=== PATIENT | male | born 1945 | race Caucasian/White ===

== ENCOUNTER 2025-02-03 21:54 | Inpatient (IN) | payer MEDICARE, OTHER, SELFPAY ==
[2025-02-03] VITALS (37 sets, daily range): BP systolic 62–119; BP diastolic 37–73; BMI 32.1
[2025-02-03] MEDS: NSS 1000 IV ×3 (20:15→21:26)
[2025-02-03 20:31] LABS: % Basophils 0.6 % (0-2); % Eosinophils 1.4 % (0-6); % Immature Granulocytes 0.2 % (0-0.5); % Lymphocytes 22.5 % (20.5-51.1); % Monocytes 6.4 % (1.7-9.3); % Neutrophils 68.9 % (42.2-75.2); Absolute Basophils 0.1 10^3/uL (0-0.2); Absolute Eosinophils 0.2 10^3/uL (0-0.7); Absolute Lymphocytes 2.8 10^3/uL (1.2-3.4); Absolute Monocytes 0.8 10^3/uL (0.1-0.6); Absolute Neutrophils 8.7 10^3/uL (1.4-6.5); Hematocrit 42.5 % (39.0-52.0); Hemoglobin 14.4 g/dL (13.0-18.0); Mean Corp Hgb Conc. 33.9 g/dL (33.0-37.0); Mean Corpuscular Volume 91.4 fL (80.0-94.0); Mean Platelet Volume 9.8 fL (7.4-10.4); Nucleated Red Blood Cells % 0 % (-); Platelet Count 271 10^3/uL (130-400); Red Blood Cell Count 4.65 10^6/uL (4.70-6.10); Red Cell Dist. Width 14.1 % (11.5-14.5); White Blood Cell Count 12.6 10^3/uL (4.8-10.8)
--- NOTE | 2025-02-03 20:45 | ED.GENMED ---
History of Present Illness
<Jm Du MD - Last Filed: 02/03/25 20:54>
General
Chief Complaint: Heart Rate Problem
Time Seen by Provider: 02/03/25 20:25
<Spenser Maddox Jr., PA-C - Last Filed: 02/04/25 00:35>
General
Source: patient
Exam Limitations: none
Nursing documentation reviewed up to this point in time: agreed with
History of Present Illness
History of Present Illness:
80-year-old male past medical history of hypertension hyperlipidemia, diabetes presenting to the emergency department today via EMS initially with concerns of nausea vomiting felt very lightheaded syncopized at home was found to be in rapid A-fib by
EMS and brought to the ER. Still feeling some ongoing lightheadedness denies any chest pain palpitations no history of recent chest pain palpitations or similar symptoms. Still has some ongoing nausea.
Past History
<Jm Du MD - Last Filed: 02/03/25 20:54>
Past History
ED Past Medical History: HTN, Hypercholesterolemia, NIDDM and Other (prostate)
ED Past Surgical History: None
Patient has exhibited threatening behavior?: No
PSI?: No
Review of Systems
<Spenser Maddox Jr., PA-C - Last Filed: 02/04/25 00:35>
Review of Systems
Allergies reviewed?: Yes
All Other Systems: ROS reviewed and negative except as documented in HPI and ROS
Phy Exam
<Spenser Maddox Jr., PA-C - Last Filed: 02/04/25 00:35>
Physical Exam
Physical Exam:
GENERAL: Alert , in no apparent distress
EYE: pupils equal and reactive
NECK: Supple, no significant adenopathy.
ENT: o/p clr, mmm.
CARDIAC: Tachycardic and irregularly irregular.
LUNGS: Clear breath sounds bilaterally, no acute respiratory distress, no wheezes/rales/rhonchi
ABDOMEN: Soft, without focal tenderness, no r/g, no cvat
NEUROLOGICAL: Alert and oriented, no focal neuro deficits
SKIN: Warm and dry, skin intact.
MUSCULOSKELETAL: No edema, well perfused.
PSYCH: Normal and appropriate interaction.
Course
<Jm Du MD - Last Filed: 02/03/25 20:54>
Orders/Labs/Results
Orders:
Orders
02/03/25 Breakfast
NPO
Allow oral meds: Yes
Allow clear liquids: Sips of Clears
02/03/25 20:18
Electrocardiogram (*1) Urgent
Reason for Study: Tachycardia
EKG- Treatment ONCE
02/03/25 20:25
Chest X-ray Portable [CR Chest Portable - 1 View] Urgent
Comment:
Reason For Exam: lh, sob
Reason Study Needs to be Portable: Patient Unstable
02/03/25 20:26
Complete Blood Count/With Diff Urgent
Comprehensive Metabolic Panel Urgent
0.9% Sodium Chloride 1000 ml [Nss] 1,000 ml IV BOLUS
02/03/25 20:30
Propofol [Diprivan] 20 ml .ROUTE .STK-MED
02/03/25 20:40
0.9% Sodium Chloride 1000 ml [Nss] 1,000 ml IV BOLUS
02/03/25 20:43
CARDIOLOGY CONSULT Urgent
Consulting Provider: Jayro Donovan
Was physician already notified: Yes
Heparin 4,000 units IV NOW STA
Nursing to Place Non Medication Order As Directed
Physician Order: PTT 6 hours after initial start of Heparin infusion
Above order entered?: Yes
02/03/25 20:45
Heparin 91635 Units/250 ml 25,000 units in 250 ml IV PER PROTOCOL
Weight to be used for heparin protocol in kilograms (kg):: 109
Protocol:: Cardiac Tx/Acute Coronary
PTT Goal Range to be used:: PTT 73 to 111 seconds
Order type:: Initial
INITIAL Infusion Dose (UNITS/KG/hr) & then follow protocol:: 12 units/kg/hr
Infusion Dose in UNITS/hr & then follow protocol (UNITS/hr):: 1,000
INFUSION RATE in mL/hr & then follow protocol (mL/hr):: 10
PTT less than or equal to 64 seconds:: Increase rate by 200 units/hr (+ 2 mL/hr)
PTT 64.1 to 72.9 seconds:: Increase rate by 100 units/hr (+ 1 mL/hr)
PTT 73 to 111 seconds:: Target Range. No change in rate.
PTT 111.1 to 130.9 seconds:: Decrease rate by 100 units/hr (- 1 mL/hr)
PTT 131 to 199.9 seconds:: HOLD for 1 hr. Then decrease rate by 200 units/hr (- 2 mL/hr)
PTT greater than or equal to 200 seconds:: HOLD for 2 hrs & Notify Provider. Then decrease by 200 units/hr (-
2 mL/hr)
Lab follow-up:: Each change, PTT q6h until 2 consecutive are therapeutic. Then PTT
daily.
02/03/25 21:01
Amiodarone [Cordarone] 150 mg Dextrose 5%/Water 100 ml [D5w] 100 ml IV NOW
Amiodarone [Cordarone] 900 mg DEXTROSE 5% PVC-free BAG [D5W PVC-free BAG] 500 ml IV NOW
Initial Dose in mg/min:: 1
Duration of initial dose (hours):: 6
Subsequent dose in mg/min:: 0.5
Duration of subsequent dose (hours):: 18
Maximum dose in mg/min:: 1
Hold and notify provider if:: Heart rate < 60 BPM or SBP < 90 mmHg or MAP < 60 mmHg
02/03/25 21:19
0.9% Sodium Chloride 1000 ml [Nss] 1,000 ml IV BOLUS
02/03/25 21:22
PTT Urgent
Comment: Obtain baseline before beginning heparin infusion if not already collected
02/03/25 21:24
Admit/Transfer Patient As Directed
Co-Sign Provider:
Level of Care: Inpatient admission
Assign to:: ICU
Physician / Group: Andre
Diagnosis: Atrial Fibrillation, Cardiogenic Shock
Reason for Hospitalization: Atrial Fibrillation, Cardiogenic Shock
Expected length of stay greater than two midnights?: Yes
ELOS- Estimated Length of Stay in days: 3
I certify the patient meets the requirements for IP care: Yes
PRN Pain Medication Management As Directed
May give lesser potent ordered pain med per pt: Yes
preference::
Protocol:: Medication orders for pain may be administered in a
manner that supports deferring to patient preference
when the pt is:
- Requesting an ordered lesser potent pain medication.
Least to most potent pain medications are defined
as: acetaminophen < NSAID < tramadol < opioids
(morphine, oxycodone, hydromorphone).
- Requesting a lesser dose of the same medication IF
ORDERED.
- Requesting a less intrusive route of administration
if both routes are prescribed by the provider (PO <
IV).
02/03/25 21:25
Code Status As Directed
Resuscitation Status: Full Code
02/03/25 21:30
PHENYLephrine 50 MG/250 ML NSS [Krishna-Synephrine] 50 mg in 250 ml IV PER PROTOCOL
Initial dose in mcg/min, then titrate:: 40
Titrate to keep:: SBP > 90 mmHg
Titrate by mcg/min:: 20 mcg/min
Frequency of titrations (minutes):: 5
Maximum dose in ICU in mcg/min:: 200
Maximum dose in IMU in mcg/min:: 80
Begin to taper infusion when:: Remained at goal for 4hrs
Taper by mcg/min:: 20 mcg/min
Frequency of taper (minutes) if patient maintains goal:: 30
Taper to off?: Yes
If infusion off & no longer maintaining goal:: Contact Provider
02/03/25 21:49
Add On- LAB Stat
Tests Added?: magnesium
02/03/25 22:06
Acetaminophen [Tylenol] 650 mg PO Q4HPRN PRN
Dextrose 50%-Water [Dextrose 50% Syringe] 12.5 grams IV [id number] PRN
Glucagon [GlucaGen] 1 mg IM PRN PRN
02/03/25 22:06
Echo 2D MMode Doppler [Echo 2D MMode Color/Doppler] Routine
Reason for Study: A-Fib
Heparin Protocol- PTT Orders As Directed
PTT per Heparin protocol: -Obtain CBC and baseline PTT - if not already collected.
-Obtain PTT 6 hours from start of infusion. Then, every 6 hours until 2 consecutive
PTT's are therapeutic. Then, PTT Daily.
-With each rate change, obtain PTT every 6 hours until 2 consecutive PTT's are
therapeutic. Then, PTT Daily.
Activity As Directed
Activity Level: Bedrest
Bedside Glucose Monitoring As Directed
Frequency: AC&HS
Additional Instructions:: Change to q6h if pt on TPN, tube feeding or not eating
Bladder Scan As Directed
Follow Bladder Retention/Intermittent Cath Algorithm?: Yes
PRN if no void in __ hours: 6
Frequency: Per Retention Algorithm
If Bladder Scan Result >: 400
then:: Straight cath
EKG with chest pain [ECG as needed] As Directed
ECG as needed for:: Chest Pain
I/O [Intake/ Output] As Directed
Frequency: Per unit guidelines
Notify MD As Directed
Notify physician if: PTT is greater than or equal to 200.
Straight Cath As Directed
Frequency: Per Retention Algorithm
Additional Instructions: straight cath as needed per acute urinary retention algorithm for 24 hrs
Additional Instructions: for bladder scan greater than 400 mL
Vital Signs As Directed
Frequency: Per unit guidelines
Weight As Directed
Frequency: Daily
Oxygen Therapy [O2 Therapy] [RESP] Routine
Titrate/Wean O2 to maintain O2 sat greater than (%): 94
02/03/25 23:34
Troponin I Q6H
02/04/25 03:20
Protime/PTT Routine
02/04/25 04:06
Troponin I Q6H
02/04/25 06:00
EKG [Electrocardiogram (*1)] IN AM
Reason for Study: Chest Pain
Basic Metabolic Panel IN AM
Cardiovascular Evaluation IN AM
Glycohemoglobin (HgbA1c) IN AM
Magnesium IN AM
02/04/25 07:30
Insulin Aspart Corrective Low [Novolog Flexpen-Low Resistance] See Protocol SC AC
02/04/25 10:06
Troponin I Q6H
02/05/25 06:00
Complete Blood Count/No Diff Q2D
Comment: notify provider: Platelet count < 130,000 or decrease by 50% from baseline
02/07/25 06:00
Complete Blood Count/No Diff Q2D
Comment: notify provider: Platelet count < 130,000 or decrease by 50% from baseline
02/09/25 06:00
Complete Blood Count/No Diff Q2D
Comment: notify provider: Platelet count < 130,000 or decrease by 50% from baseline
02/11/25 06:00
Complete Blood Count/No Diff Q2D
Comment: notify provider: Platelet count < 130,000 or decrease by 50% from baseline
02/13/25 06:00
Complete Blood Count/No Diff Q2D
Comment: notify provider: Platelet count < 130,000 or decrease by 50% from baseline
02/15/25 06:00
Complete Blood Count/No Diff Q2D
Comment: notify provider: Platelet count < 130,000 or decrease by 50% from baseline
02/17/25 06:00
Complete Blood Count/No Diff Q2D
Comment: notify provider: Platelet count < 130,000 or decrease by 50% from baseline
02/19/25 06:00
Complete Blood Count/No Diff Q2D
Comment: notify provider: Platelet count < 130,000 or decrease by 50% from baseline
Abnormal Lab Results
02/03/25
20:26
WBC 12.6 H 10^3/uL
(4.8-10.8)
RBC 4.65 L 10^6/uL
(4.70-6.10)
Absolute Neuts (auto) 8.7 H 10^3/uL
(1.4-6.5)
Absolute Monos (auto) 0.8 H 10^3/uL
(0.1-0.6)
Glucose 172 H mg/dl
(70-99)
02/03/25 20:26
02/03/25 20:26
Vital Signs
Initial and Last Documented VS:
Initial Vital Signs
BP
62/45
02/03/25 20:16
Last Documented Vital Signs
Temp Pulse Resp BP Pulse Ox
98.7 F 144 24 119/70 95
02/03/25 22:22 02/03/25 22:15 02/03/25 22:15 02/03/25 22:15 02/03/25 22:28
<Spenser Maddox Jr., PA-C - Last Filed: 02/04/25 00:35>
Orders/Labs/Results
Orders:
Orders
02/03/25 Breakfast
NPO
Allow oral meds: Yes
Allow clear liquids: Sips of Clears
02/03/25 20:18
Electrocardiogram (*1) Urgent
Reason for Study: Tachycardia
EKG- Treatment ONCE
02/03/25 20:25
Chest X-ray Portable [CR Chest Portable - 1 View] Urgent
Comment:
Reason For Exam: lh, sob
Reason Study Needs to be Portable: Patient Unstable
02/03/25 20:26
Complete Blood Count/With Diff Urgent
Comprehensive Metabolic Panel Urgent
0.9% Sodium Chloride 1000 ml [Nss] 1,000 ml IV BOLUS
02/03/25 20:30
Propofol [Diprivan] 20 ml .ROUTE .STK-MED
02/03/25 20:40
0.9% Sodium Chloride 1000 ml [Nss] 1,000 ml IV BOLUS
02/03/25 20:43
CARDIOLOGY CONSULT Urgent
Consulting Provider: Jayro Donovan
Was physician already notified: Yes
Heparin 4,000 units IV NOW STA
Nursing to Place Non Medication Order As Directed
Physician Order: PTT 6 hours after initial start of Heparin infusion
Above order entered?: Yes
02/03/25 20:45
Heparin 78060 Units/250 ml 25,000 units in 250 ml IV PER PROTOCOL
Weight to be used for heparin protocol in kilograms (kg):: 109
Protocol:: Cardiac Tx/Acute Coronary
PTT Goal Range to be used:: PTT 73 to 111 seconds
Order type:: Initial
INITIAL Infusion Dose (UNITS/KG/hr) & then follow protocol:: 12 units/kg/hr
Infusion Dose in UNITS/hr & then follow protocol (UNITS/hr):: 1,000
INFUSION RATE in mL/hr & then follow protocol (mL/hr):: 10
PTT less than or equal to 64 seconds:: Increase rate by 200 units/hr (+ 2 mL/hr)
PTT 64.1 to 72.9 seconds:: Increase rate by 100 units/hr (+ 1 mL/hr)
PTT 73 to 111 seconds:: Target Range. No change in rate.
PTT 111.1 to 130.9 seconds:: Decrease rate by 100 units/hr (- 1 mL/hr)
PTT 131 to 199.9 seconds:: HOLD for 1 hr. Then decrease rate by 200 units/hr (- 2 mL/hr)
PTT greater than or equal to 200 seconds:: HOLD for 2 hrs & Notify Provider. Then decrease by 200 units/hr (-
2 mL/hr)
Lab follow-up:: Each change, PTT q6h until 2 consecutive are therapeutic. Then PTT
daily.
02/03/25 21:01
Amiodarone [Cordarone] 150 mg Dextrose 5%/Water 100 ml [D5w] 100 ml IV NOW
Amiodarone [Cordarone] 900 mg DEXTROSE 5% PVC-free BAG [D5W PVC-free BAG] 500 ml IV NOW
Initial Dose in mg/min:: 1
Duration of initial dose (hours):: 6
Subsequent dose in mg/min:: 0.5
Duration of subsequent dose (hours):: 18
Maximum dose in mg/min:: 1
Hold and notify provider if:: Heart rate < 60 BPM or SBP < 90 mmHg or MAP < 60 mmHg
02/03/25 21:19
0.9% Sodium Chloride 1000 ml [Nss] 1,000 ml IV BOLUS
02/03/25 21:22
PTT Urgent
Comment: Obtain baseline before beginning heparin infusion if not already collected
02/03/25 21:24
Admit/Transfer Patient As Directed
Co-Sign Provider:
Level of Care: Inpatient admission
Assign to:: ICU
Physician / Group: Andre
Diagnosis: Atrial Fibrillation, Cardiogenic Shock
Reason for Hospitalization: Atrial Fibrillation, Cardiogenic Shock
Expected length of stay greater than two midnights?: Yes
ELOS- Estimated Length of Stay in days: 3
I certify the patient meets the requirements for IP care: Yes
PRN Pain Medication Management As Directed
May give lesser potent ordered pain med per pt: Yes
preference::
Protocol:: Medication orders for pain may be administered in a
manner that supports deferring to patient preference
when the pt is:
- Requesting an ordered lesser potent pain medication.
Least to most potent pain medications are defined
as: acetaminophen < NSAID < tramadol < opioids
(morphine, oxycodone, hydromorphone).
- Requesting a lesser dose of the same medication IF
ORDERED.
- Requesting a less intrusive route of administration
if both routes are prescribed by the provider (PO <
IV).
02/03/25 21:25
Code Status As Directed
Resuscitation Status: Full Code
02/03/25 21:30
PHENYLephrine 50 MG/250 ML NSS [Krishna-Synephrine] 50 mg in 250 ml IV PER PROTOCOL
Initial dose in mcg/min, then titrate:: 40
Titrate to keep:: SBP > 90 mmHg
Titrate by mcg/min:: 20 mcg/min
Frequency of titrations (minutes):: 5
Maximum dose in ICU in mcg/min:: 200
Maximum dose in IMU in mcg/min:: 80
Begin to taper infusion when:: Remained at goal for 4hrs
Taper by mcg/min:: 20 mcg/min
Frequency of taper (minutes) if patient maintains goal:: 30
Taper to off?: Yes
If infusion off & no longer maintaining goal:: Contact Provider
02/03/25 21:49
Add On- LAB Stat
Tests Added?: magnesium
02/03/25 22:06
Acetaminophen [Tylenol] 650 mg PO Q4HPRN PRN
Dextrose 50%-Water [Dextrose 50% Syringe] 12.5 grams IV [id number] PRN
Glucagon [GlucaGen] 1 mg IM PRN PRN
02/03/25 22:06
Echo 2D MMode Doppler [Echo 2D MMode Color/Doppler] Routine
Reason for Study: A-Fib
Heparin Protocol- PTT Orders As Directed
PTT per Heparin protocol: -Obtain CBC and baseline PTT - if not already collected.
-Obtain PTT 6 hours from start of infusion. Then, every 6 hours until 2 consecutive
PTT's are therapeutic. Then, PTT Daily.
-With each rate change, obtain PTT every 6 hours until 2 consecutive PTT's are
therapeutic. Then, PTT Daily.
Activity As Directed
Activity Level: Bedrest
Bedside Glucose Monitoring As Directed
Frequency: AC&HS
Additional Instructions:: Change to q6h if pt on TPN, tube feeding or not eating
Bladder Scan As Directed
Follow Bladder Retention/Intermittent Cath Algorithm?: Yes
PRN if no void in __ hours: 6
Frequency: Per Retention Algorithm
If Bladder Scan Result >: 400
then:: Straight cath
EKG with chest pain [ECG as needed] As Directed
ECG as needed for:: Chest Pain
I/O [Intake/ Output] As Directed
Frequency: Per unit guidelines
Notify MD As Directed
Notify physician if: PTT is greater than or equal to 200.
Straight Cath As Directed
Frequency: Per Retention Algorithm
Additional Instructions: straight cath as needed per acute urinary retention algorithm for 24 hrs
Additional Instructions: for bladder scan greater than 400 mL
Vital Signs As Directed
Frequency: Per unit guidelines
Weight As Directed
Frequency: Daily
Oxygen Therapy [O2 Therapy] [RESP] Routine
Titrate/Wean O2 to maintain O2 sat greater than (%): 94
02/03/25 23:34
Troponin I Q6H
02/04/25 03:20
Protime/PTT Routine
02/04/25 04:06
Troponin I Q6H
02/04/25 06:00
EKG [Electrocardiogram (*1)] IN AM
Reason for Study: Chest Pain
Basic Metabolic Panel IN AM
Cardiovascular Evaluation IN AM
Glycohemoglobin (HgbA1c) IN AM
Magnesium IN AM
02/04/25 07:30
Insulin Aspart Corrective Low [Novolog Flexpen-Low Resistance] See Protocol SC AC
02/04/25 10:06
Troponin I Q6H
02/05/25 06:00
Complete Blood Count/No Diff Q2D
Comment: notify provider: Platelet count < 130,000 or decrease by 50% from baseline
02/07/25 06:00
Complete Blood Count/No Diff Q2D
Comment: notify provider: Platelet count < 130,000 or decrease by 50% from baseline
02/09/25 06:00
Complete Blood Count/No Diff Q2D
Comment: notify provider: Platelet count < 130,000 or decrease by 50% from baseline
02/11/25 06:00
Complete Blood Count/No Diff Q2D
Comment: notify provider: Platelet count < 130,000 or decrease by 50% from baseline
02/13/25 06:00
Complete Blood Count/No Diff Q2D
Comment: notify provider: Platelet count < 130,000 or decrease by 50% from baseline
02/15/25 06:00
Complete Blood Count/No Diff Q2D
Comment: notify provider: Platelet count < 130,000 or decrease by 50% from baseline
02/17/25 06:00
Complete Blood Count/No Diff Q2D
Comment: notify provider: Platelet count < 130,000 or decrease by 50% from baseline
02/19/25 06:00
Complete Blood Count/No Diff Q2D
Comment: notify provider: Platelet count < 130,000 or decrease by 50% from baseline
Abnormal Lab Results
02/03/25
20:26
WBC 12.6 H 10^3/uL
(4.8-10.8)
RBC 4.65 L 10^6/uL
(4.70-6.10)
Absolute Neuts (auto) 8.7 H 10^3/uL
(1.4-6.5)
Absolute Monos (auto) 0.8 H 10^3/uL
(0.1-0.6)
Glucose 172 H mg/dl
(70-99)
02/03/25 20:26
02/03/25 20:26
Vital Signs
Initial and Last Documented VS:
Initial Vital Signs
BP
62/45
02/03/25 20:16
Last Documented Vital Signs
Temp Pulse Resp BP Pulse Ox
98.7 F 144 24 119/70 95
02/03/25 22:22 02/03/25 22:15 02/03/25 22:15 02/03/25 22:15 02/03/25 22:28
Procedures
<Jm Du MD - Last Filed: 02/03/25 20:54>
Moderate Sedation
Moderate Sedation Start Time(when first medication is given): 20:34
Cardioversion
Indication:: Afib
Performed by:: Jm Du MD; Spenser Maddox PA-C
Synchronized?: Yes
Energy Used: 200 joules
Number of attempts: 3 (200J,300J,360J)
Successful?: No
ASA Risk Score: Class II
Any reaction or bad outcome to prior sedation/anesthesia?: No history of a reaction
Sedation level to be attained: moderate
Chart and allergies reviewed: Yes
Patient reassessed prior to sedation: Yes
Time out completed at (validating right patient & procedure): 20:34
History of difficult intubation: No
Airway free of obstruction: Yes
Patient has a gag reflex: Yes
Patient is able to open mouth: Yes
Patient has no dentures: Yes
Patient has no loose teeth: Yes
Medication administered by Provider during Moderate Sedation: IV Propofol (mg)
Total dose administered: 80
Time drug administered: 20:34
Start Time: 20:34
Stop Time: 20:54
<WILLY Ohara Jr.C - Last Filed: 02/04/25 00:35>
Moderate Sedation
ASA Risk Score: Class II
Chart and allergies reviewed: Yes
Consent for anesthesia obtained: Yes
Time out completed (validating right patient & procedure): Yes
History of difficult intubation: No
Airway free of obstruction: Yes
Patient has a gag reflex: Yes
Patient is able to open mouth: Yes
Patient has no dentures: Yes
Patient has no loose teeth: Yes
Medication administered by Provider during Moderate Sedation: IV Propofol (mg) (80)
Total dose administered: 80
Time drug administered: 20:34
Moderate Sedation Procedure End Time: 20:52
<Spenser Maddox Jr., PA-C - Last Filed: 02/04/25 00:35>
MDM/Problems Addressed
MDM/Problems Addressed:
80-year-old male presenting to the emergency department today with concerns after vomiting at home having a syncopal episode. Found to be in rapid A-fib. On arrival blood pressure low in the 60s over 40s. He was started on a pressure bag
immediately of IV fluids. This seemed to be trending upward but still somewhat low. He was feeling ongoing lightheadedness considering the patient needed to be emergently cardioverted. Shock was attempted at 200 300 and then 360 J without
success. Patient tolerated well require propofol. Patient recovered well after the propofol. Still in rapid A-fib blood pressure improving after ongoing second liter of fluid into the 80s over 40s. Patient was interactive and able to speak
breathe on his own after a few minutes. He did have a brief episode where he needed to be bagged. Concerning the patient unable to be cardioverted out of rapid atrial fibrillation with low blood pressure unable to give Cardizem. Case was
discussed with cardiology recommending amiodarone heparin dosing phenylephrine if blood pressures on creasing. Patient then admitted for further monitoring and treatment.
<Spenser Maddox Jr., PA-C - Last Filed: 02/04/25 00:35>
*Critical Care Note
Total Time (30-74mins, 75-104mins- exclusive of procedures): Not Applicable
comment:
Critical care statement: A total of 40 minutes of critical care time was provided for this patient. This includes management of unstable vital signs, evaluation of the patient at bedside, reviewing the patient's pertinent medical records, discussion
with consultants, review of old EKGs and review of pertinent medical records. This time with separate from time utilized to perform the aforementioned documented procedures
ED Attending Note
<Jm Du MD - Last Filed: 02/03/25 20:54>
ED Attending Note
Patient seen and examined by attending physician: Yes
ED Attending Note:
I have seen and evaluated the patient with a [id number] encounter. I have spoken to the advance practicer provider and involved in the medical history, the physical exam, medical decision making.
Evaluation and management service: agree unless noted differently below.
Results interpretation: agree unless noted differently below.
Focused HPI: 80-year-old male with history of hypertension, hyperlipidemia, diabetes presents to the ER for evaluation of dizziness. Patient was eating tonight and began to feel dizzy and had some nausea and threw up once. Dizziness persisted and
EMS called to bring her to the hospital. EMS found that he was in rapid atrial fibrillation. Patient denies chest pain or palpitations. He denies similar symptoms in the past. He denies any known cardiac history and says he has not seen a
mechanical maintenance in the past.
Physical exam: Patient is awake and alert. He is hypotensive. Tachycardic. No audible murmurs. Lungs sound clear. No edema in the legs.
Medical Decision Makin-year-old male presents in new onset A-fib with RVR; symptoms started this evening. He presents hypotensive and tachycardic. No chest pain, only mild dizziness. He was given a liter of fluids with only marginal
improvement in blood pressure and so decision was made to proceed with cardioversion for unstable patient in rapid atrial fibrillation. Unfortunately after 3 attempts at cardioversion patient remains in rapid atrial fibrillation. Case was
discussed with cardiology�will plan to proceed with amiodarone bolus plus infusion. She will start heparin infusion. Will continue fluid resuscitation�if he remains hypotensive may need vasopressors. Cardiology to consult. Discussed with
hospitalist for admission.
-
Portions of this chart may have been created with voice recognition software.� Occasional wrong word or��sound alike� substitutions may have occurred due to the inherent limitations of voice recognition software.
Discharge Plan
Departure
Patient Disposition: Admit
Date of Disposition: 02/03/25
Time of Disposition: 20:51
Admit to doctor: Andre
Presentation/result/management discussed w/ accepting MD/DO: Hospitalist
Discharge Problem:
Atrial fibrillation with RVR
Interventions
Interventions:
*General Assessment Last Done: 02/03/25 21:08
*Neglect/Abuse Screening Last Done: 02/03/25 21:06
*Nursing Disposition Last Done: 02/03/25 22:25
ED- Cardiac Assessment Last Done: 02/03/25 20:15
Discharge Date and Time
Discharge Date/Time: 02/03/25 22:26
[2025-02-03 20:49] LABS: ALT (SGPT) 16 U/L (0-50); AST (SGOT) 20 U/L (17-59); Albumin 4.1 g/dl (3.5-5.0); Alkaline Phosphatase 95 U/L (38-126); Blood Urea Nitrogen 19 mg/dl (9-20); Calcium 9.4 mg/dl (8.4-10.2); Carbon Dioxide 24 mmol/L (22-30); Chloride 100 mmol/L (98-107); Glucose 172 mg/dl (70-99); Potassium 3.5 mmol/L (3.5-5.1); Sodium 141 mmol/L (135-145); Total Bilirubin 0.7 mg/dl (0.2-1.3); Total Protein 6.4 g/dl (6.3-8.2); eGFR > 60.00
[2025-02-03] MEDS: CORDARONE 103 MG IV (21:15)
[2025-02-03] MEDS: HEPARIN 4000 UNITS IV (21:19)
[2025-02-03] MEDS: HEPARIN 25000 UNITS/250 ML IV (21:20)
--- NOTE | 2025-02-03 21:29 | HPS.HSE ---
Family Physician
-
Family Physician:
Chief Complaint
-
Syncope
History of Present Illness
Patient is an 80y M with PMH significant for hypertension, DM-II and BPH who presents to ED following a syncopal episode. Patient states that he felt nauseated after dinner this evening. He went into the bathroom and had N/V and then he lost
consciousness. The next thing he recalls is being transported to the ED via ambulance. Patient's notes that she heard a 'bang' and went into the bathroom to find the patient slumped against the wall near the toilet. There were no evident
signs of trauma / injury. Patient was poorly responsive and continued to have profuse N/V according to his . 911 was called and patient was brought to the ED for further evaluation.
In the ED, he was noted to be in A-Fib with RVR in the 150s. He was also persistently hypotensive despite IVFs. Given hypotension, cardioversion was attempted in the ED x 3. Unfortunately, this was ultimately unsuccessful. Cardiology was
consulted and recommended IV amiodarone infusion +/- pressors.
At the time of my examination, patient is awake and alert and denies any complaints.
He denies any chest pain, SOB or sense of palpitations.
He denies any prior history of 'A-Fib' or other cardiac issues.
Medical History
Past Medical History
Past Medical History: Reports Other
Additional Past Medical History:
Hypertension
DM-II
DDD
C1 Fracture
BPH
Past Surgical History: Reports Other
Additional Past Surgical History:
Cataracts
Social History
Tobacco: Smoker (Current some day smoker. Prior h/o regular cigarette smoking. > 40 pack years total.)
Alcohol: Daily (1 drink daily.)
Drug: None
Personal:
Living: With Family
Family History
Family History: Other (Father: Lung Cancer Mother: CAD)
Allergies / Home Medications
Allergies reflects when Allergies were last updated in [facility].
Home Medications with original date entered in [facility]
Allergy/Medication List:
Allergies
Allergy/AdvReac Type Severity Reaction Status Date / Time
NKA - No Known Allergies Allergy Uncoded 02/09/08 11:31
Home Medications
amlodipine 10 mg tablet 10 mg PO DAILY 09/24/22
aspirin 81 mg tablet 81 mg PO BID 09/24/22
doxazosin 8 mg tablet 8 mg PO DAILY 09/24/22
finasteride 5 mg tablet 5 mg PO DAILY 09/24/22
lisinopril 20 mg tablet 20 mg PO DAILY 09/24/22
metformin 500 mg tablet 500 mg PO BID 09/24/22
simvastatin 10 mg tablet 10 mg PO HS 09/24/22
Review of Systems
-
History Source: Patient
A 12 point ROS was completed and negative except as noted: Yes
Constitutional: Denies Fever or Chills
Respiratory: Denies Cough or Trouble Breathing
Cardiac: Reports Syncope; Denies Chest Pain or Palpitations
Abdomen/GI: Reports Nausea and Vomiting; Denies Abdominal Pain, Diarrhea, Bloody Stools or Black Stools
: Denies Dysuria or Frequency
Musculoskeletal: Denies Joint Pain or Edema
Neurological: Denies Dizzy or Headache
Psych: Denies Depression or Anxiety
Physical Exam
Vital Signs
Vital Signs
Temp Pulse Resp BP Pulse Ox
98.3 F 133 21 79/44 99
02/03/25 20:33 02/03/25 21:25 02/03/25 21:25 02/03/25 21:25 02/03/25 21:25
Physical Exam
General: Other (80y M in no acute distress.)
HEENT: Moist mucous membranes and PERRLA
Respiratory: Clear; No Wheezes, Rales or Rhonchi
Cardiac: S1/S2, Irregular Rhythm and Tachycardia; No Murmur
GI: Soft, Non Tender, Non Distended, Normal Bowel Sounds and Other (Diastasis recti. No rebound / guarding.)
Musculoskeletal: No Clubbing, No Cyanosis and No Edema
Neuro: AO x 3
Laboratory Results
-
02/03/25 20:26
02/03/25 20:
Laboratory Results
Total Bilirubin 0.7 mg/dl (0.2-1.3) 02/03/25 20:
AST 20 U/L (17-59) 02/03/25:
ALT 16 U/L (0-50) 02/03/25:
Alkaline Phosphatase 95 U/L (38-126) 02/03/25:
Impression/Plan
-
A/P: Patient is an 80y M with PMH significant for HTN, DM-II and BPH who presents to ED following syncopal event at home.
Atrial Fibrillation with Rapid Ventricular Response
Cardiogenic Shock secondary to the above
- Admit to ICU for further evaluation and treatment.
- No lasting response to attempted cardioversion x 3 in the ED.
- BP somewhat improved after IVFs.
- Continue IV amiodarone protocol.
- IV heparin infusion for stroke risk reduction.
- Continue IVF boluses as needed to maintain perfusion (received 2L so far - will add another now).
- +/- pressor support if needed.
- Cardiology evaluation for additional recommendations.
- Echo.
- TFTs are pending.
- Hold antihypertensive medications acutely.
Syncope
N/V
- Syncopal episode at home in setting of N/V - ? vasovagal event initially given GI symptoms versus hypotension due to tachyarrhythmia as noted above.
- IVF support as noted above.
- reports significant volume losses / profuse emesis prior to presentation.
- Follow for any new / recurrent symptoms.
- Ensure perfusion as noted above.
Benign Hypertension
- Currently hypotensive. Holding OP meds.
DM-II
- Stable. Hold metformin acutely.
- Follow glucose and cover with SSI as needed.
- Update A1C.
BPH
- Stable. Continue finasteride.
- Bladder scan protocol.
DVT Prophylaxis: On IV Heparin at present
Code Status: Full
[2025-02-03 21:37] LABS: APTT 32.7 Sec (23.4-35.0)
[2025-02-03] MEDS: CORDARONE 518 MG IV (21:37)
[2025-02-03 22:22] LABS: Glucose - Point of Care 129 mg/dl (70-99)
[2025-02-03] MEDS: KCL 270 MEQ IV (22:38)
[2025-02-04] VITALS (19 sets, daily range): BP systolic 108–146; BP diastolic 60–119; BMI 32.2
[2025-02-04 00:15] LABS: Magnesium 1.8 mg/dl (1.6-2.3)
[2025-02-04 00:38] LABS: Troponin I < 0.012 ng/ml
[2025-02-04] MEDS: MAGNESIUM SULFATE 100 IV (00:43)
--- NOTE | 2025-02-04 01:41 | PTCARENOTE ---
Received pt to ICU room 3370 from ER at approx 2205. Upon arrival pt on Heparin drip at 1000 units/hr and Amiodarone at 1mg/min. Initially AFib 120s-150s on monitor but has since converted to SR. Assessment as documented in nursing shift assessment
flowsheet. Admission database completed. K+ and Mag repleted with riders, see EMAR. BP has been WNL with MAP >65 since arrival to ICU. Placed on 2LNC while sleeping due to desatting to mid 80s, SpO2 now 95%.
[2025-02-04 04:05] LABS: INR 0.97; PT 13.2 Sec (11.4-14.6)
[2025-02-04 04:06] LABS: APTT 76.8 Sec (23.4-35.0)
[2025-02-04 04:13] LABS: Troponin I 0.013 ng/ml
[2025-02-04 04:17] LABS: Blood Urea Nitrogen 19 mg/dl (9-20); Calcium 8.5 mg/dl (8.4-10.2); Carbon Dioxide 27 mmol/L (22-30); Chloride 108 mmol/L (98-107); Estimated Creatinine Clearance 68 ml/min; Glucose 139 mg/dl (70-99); HDL Cholesterol 64 mg/dl; LDL Cholesterol, Calculated 58 mg/dl; Magnesium 2.2 mg/dl (1.6-2.3); Potassium 4.3 mmol/L (3.5-5.1); Sodium 140 mmol/L (135-145); Total Cholesterol 136 mg/dl (50-199); Triglyceride 71 mg/dl (10-149); Very Low Density Lipoprotein 14 mg/dl (0-30); eGFR > 60.00
[2025-02-04 04:45] LABS: TSH Reflex To Free T4 1.51 uIU/ml (0.47-4.68)
--- NOTE | 2025-02-04 05:04 | PTCARENOTE ---
Assessment unchanged. SR 70s on monitor. Remains on Amiodarone and Heparin drips.
[2025-02-04] MEDS: LR 500 IV (05:57)
[2025-02-04] MEDS: LR 1000 IV ×2 (05:57→12:19)
--- NOTE | 2025-02-04 05:58 | PTCARENOTE ---
Pt with scant urine output since arrival to ICU--urine sitting in tubing for condom cath but not even enough to measure. Bladder scan done, 23 mL. Discussed with Rosio GRUBER, 500mL bolus of LR ordered, to be followed by LR at 80ml/hr.
--- NOTE | 2025-02-04 08:04 | PTCARENOTE ---
recd pt incont large amount, pad and linens changed. in good spirits. heparin and amio infusing, able to move self in bed with min assist. remains NPO at this time. 12 lead obtained per order. no chest pain, placed on room air with good pulse
ox, instructed to report any resp complaints. rare NPC.
--- NOTE | 2025-02-04 08:26 | CON.INTV ---
Consultation
Consultation Request
Date/Time Consultation Requested: 02/03/20252209
Date/Time Consultation Performed: 02/04/2025817
Requesting Provider: YASMANI Tripp
Performing Provider: Dr. Mcghee
Reason for Consultation: Hypotension/A fib
Medical History
-
Chief Complaint: Passed out at home + nausea/vomiting
History of Present Illness:
80-year-old male active tobacco smoker with a past medical history of hypertension, hypercholesterolemia, and BPH who presented with vomiting at home and passed out. Patient was home with his and said that the food did not taste good. He then
went to the bathroom where he began to vomit and then passed out while sitting down on the toilet. He never hit his head and there was no seizure-like activity, tongue biting or urinary/stool incontinence. No one called and when EMS arrived he was
found to be in rapid A-fib with heart rate in the 150s. Patient reported that he was dizzy but had no chest pain at the time. In the ER he was found to be in rapid A-fib with heart rate in the 150s and also hypotensive despite being given fluids.
He was attempted to be cardioverted in the ER x 3 with continued rapid A-fib. Cardiology consulted who recommended IV amiodarone infusion and pressors if needed. Initial BP in the ER was 62/45 and he was saturating 94% on room air, and he was
afebrile to 98.3 �F. Initial labs showed leukocytosis of 12.6, absolute eosinophils 200, glucose 172, troponin negative at <0.012, + TSH 1.51. CXR showed mild pulmonary vascular congestion. He was started on amiodarone in the ER + heparin drip,
and given a total of 3 L IVF with NS 0.9%. He was admitted to the ICU for further care and Director Supplier Quality services consulted for additional management/recommendations.
When I saw the patient this morning, he was resting in bed in no acute distress with his , Alyssa, at bedside. All questions were answered. He does not feel nauseous anymore and denies KEYS, SOB at rest, fevers or chills. Still feels a little
fatigued and SOB with exertion. He says he has no history of atrial fibrillation. Current heart rate 76, BP 141/119 and he is saturating 95% on room air. He denies any preceding chest pain yesterday before he had passed out.
PMHx: Hypertension, tobacco use, lumbar DDD, hypercholesterolemia, BPH, history of cervical fracture at C1
PSHx: Cataract surgery
Past Medical History
Past Medical History: Other (Above as per HPI)
Past Surgical History: Other (Above as per HPI)
Social History
Tobacco: Smoker (Currently smokes 2 cigarettes 4 times a week, with history of 1 PPD x 60 years)
Alcohol: Daily (1 drink daily)
Drug: None
Personal:
Living: With Family (=Alyssa)
Family History
Family History: CAD (Father) and Hypertension (Mother)
Allergies / Home Medications
Allergies
Allergy/AdvReac Type Severity Reaction Status Date / Time
NKA - No Known Allergies Allergy Uncoded 02/09/08 11:31
Home Medications
�Medication �Instructions �Recorded �Confirmed �Last Taken �Type
aspirin 81 mg tablet 81 mg PO BID Blood Clot 09/24/22 02/04/25 02/03/25 History
Prevention/Tx
doxazosin 8 mg tablet 8 mg PO DAILY BPH/HTN 09/24/22 02/04/25 02/03/25 History
finasteride 5 mg tablet 5 mg PO DAILY BPH 09/24/22 02/04/25 02/03/25 History
metformin 500 mg tablet 500 mg PO BID Diabetes 09/24/22 02/04/25 02/03/25 History
simvastatin 10 mg tablet 10 mg PO HS High Cholesterol 09/24/22 02/04/25 02/03/25 History
levomefolate Ca 3 mg-B6 35 1 cap PO BID 02/04/25 02/04/25 02/03/25 History
mg-meB12 2 mg-algal oil 90.314 mg
capsule (Foltanx RF)
lisinopril 20 1 tab PO DAILY 02/04/25 02/04/25 02/03/25 History
mg-hydrochlorothiazide 25 mg tablet
Review of Systems
-
History Source: Patient
All other systems: Negative unless noted
Vitals / Labs / Diagnostic Testing
Vital Signs
Temp Pulse Resp BP Pulse Ox
98.2 F 85 24 127/101 94
02/04/25 08:00 02/04/25 08:00 02/04/25 08:00 02/04/25 08:00 02/04/25 08:00
Lab Data
02/03/25 20:26
02/04/25 03:37
Laboratory Results
02/03/25 02/04/25 02/04/25
21:22 03:37 09:30
PT 13.2
INR 0.97
APTT 32.7 76.8 H Cancelled
Diagnostic Testing:
Physical Exam
-
HEENT: Normocephalic and Anicteric
Cardiovascular: S1/S2, Regular Rhythm and Peripheral Edema (negative)
Respiratory: Wheeze (Letcher upon expiration bilaterally), Rales (negative), Rhonchi (negative) and Non-Labored Respirations
GI: Soft, Non Distended, Non Tender and Normal Bowel Sounds
Neurology: AO x 3 and Tremors (negative)
Skin: Warm and Dry
General: Respiratory Distress (negative), Comfortable, Fever (negative) and Chills (negative)
Assessment
-
Assessment: 80-year-old male active tobacco smoker with a past medical history of hypertension, hypercholesterolemia, and BPH who presented with vomiting at home and passed out. Patient was home with his and said that the food did not taste
good. He then went to the bathroom where he began to vomit and then passed out while sitting down on the toilet. He never hit his head and there was no seizure-like activity, tongue biting or urinary/stool incontinence. No one called and when EMS
arrived he was found to be in rapid A-fib with heart rate in the 150s. Patient reported that he was dizzy but had no chest pain at the time. In the ER he was found to be in rapid A-fib with heart rate in the 150s and also hypotensive despite being
given fluids. He was attempted to be cardioverted in the ER x 3 with continued rapid A-fib. Cardiology consulted who recommended IV amiodarone infusion and pressors if needed. Initial BP in the ER was 62/45 and he was saturating 94% on room air,
and he was afebrile to 98.3 �F. Initial labs showed leukocytosis of 12.6, absolute eosinophils 200, glucose 172, troponin negative at <0.012, + TSH 1.51. CXR showed mild pulmonary vascular congestion. He was started on amiodarone in the ER +
heparin drip, and given a total of 3 L IVF with NS 0.9%. He was admitted to the ICU for further care and Director Supplier Quality services consulted for additional management/recommendations.
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
Impression:
#Rapid A-fib with hypotension requiring amiodarone s/p failed DCCV x3 and now in NSR (A fib was new onset)
#Syncopal episode prior to admission
#Hypotension due to rapid A-fib - now normotensive
#Leukocytosis likely reactive
#Suspected COPD
#Tobacco use disorder with [id number]-eled-[id number] history, currently smokes 2 cigarettes/day 4 days a week
#Daily alcohol use (reports only 1 beer daily)
#BPH
#History of hypertension
Plan:
- Patient is now in NSR and troponin has been negative
- Amiodarone drip has now stopped and he is being started on metoprolol per cardiology
- Heparin drip also being stopped and he is being started on Eliquis as CHADS2-Vasc score is 4
- He will need outpatient cardiology follow-up
- Case management consult for pricing for Eliquis
- Continue with telemetry to monitor for arrhythmias
- Replete electrolytes with K>4, Mg>2
- Maintain SpO2 >90-94% -currently on room air breathing comfortably and saturating 95%
- He is currently wheezing on exam and I suspect that he has COPD
- He says he is not short of breath at home but per the , he is usually huffing and puffing especially when he exerts himself
- He is not currently on an inhaler, but I do believe he would benefit from starting a long-acting muscarinic antagonist; I will start him on Spiriva which he should be discharged on
- I will arrange for outpatient pulmonary office follow-up for full PFTs and continued management of his suspected COPD
- prn nebulized bronchodilators - not currently bronchospastic
- Incentive spirometer encouraged 10x per hour for at least 4 hrs a day
- Maintain MAP>65
- Vasopressors were never started
- No evidence for pneumonia on his CXR
- Trend WBC and monitor for fevers
- If he spikes a fever then consider stewart-culture with initiation of empiric antibiotics
- He reports that he drinks only 1 beer daily
- Monitor for signs of alcohol withdrawal as he could be underestimating his total usage
- Start thiamine
- Maintain euglycemia with goal BG 140-180; HbA1C: 5.8 from 02/04/2025
- Trend H/H and transfuse if needed to keep Hb>7g/dL; keep plt>20k, unless there is concern for bleeding then keep plt>50k
- I offered a nicotine patch but he declined at this time
- PT/OT
- DVT ppx - Eliquis
Patient has markedly improved, remains normotensive and now in normal sinus rhythm. Stable for downgrade out of ICU to telemetry. Pulmonary service will continue to follow along and outpatient pulmonary office follow-up will be arranged.
Data:
CXR 02/03/2025: Mild pulmonary vascular congestion.
Total time spent today was 57 minutes for this encounter. Time includes reviewing laboratory test/imaging results, reviewing pertinent medical records, obtaining and reviewing medical history, performing an appropriate exam, ordering medications,
tests and procedures. Time also includes documentation of this encounter, coordinating patient care and communicating with other healthcare professionals. Total time does not include separately billed tests performed on this date of service.
[2025-02-04 09:42] LABS: Glycohemoglobin (HgbA1c) 5.8 % (4.0-5.6)
--- NOTE | 2025-02-04 09:53 | W.PN.HOSP.TC ---
Today's Communication/Plan
-
Start on BB
Eliquis
Ok for diet
Echo in AM
Can go to telemetry
Assessment / Plan
Assessment / Plan
Physical Exam
General: Other (80y M in no acute distress.)
HEENT: Moist mucous membranes and PERRLA
Respiratory: Clear; No Wheezes, Rales or Rhonchi
Cardiac: S1/S2, Irregular Rhythm and Tachycardia; No Murmur
GI: Soft, Non Tender, Non Distended, Normal Bowel Sounds and Other (Diastasis recti. No rebound / guarding.)
Musculoskeletal: No Clubbing, No Cyanosis and No Edema
Neuro: AO x 3
Patient is an 80y M with PMH significant for HTN, DM-II and BPH who presents to ED following syncopal event at home.
# new onset Atrial Fibrillation with Rapid Ventricular Response
Cardiogenic Shock secondary to cardiac arrhythmia
Currently, patient back in sinus rhythm. He is off vasopressor. 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 We will stop intravenous amiodarone and start the patient on metoprolol.
Per cardiology: [id number]. Start Eliquis 5 mg twice daily, stop aspirin.
Echocardiogram in a.m.
Syncope
# N/V
- Syncopal episode at home in setting of N/V -consistent with? vasovagal event initially given GI symptoms versus hypotension due to tachyarrhythmia as noted above.
Currently, no GI symptoms. He wants to eat. Will order diet
#Benign Hypertension
Cannot resume home lisinopril�hydrochlorothiazide and doxazosin
#DM-II
- Stable. Hold metformin acutely.
- Follow glucose and cover with SSI as needed.
- Hemoglobin A1c 5.8
# BPH
Monitor for retention
# Leukocytosis, likely reactive
Afebrile
# Hypomagnesemia
s/p magnesium sulfate
DVT Prophylaxis: On Eliquis
Code Status: Full
Total time spent to see the patient, examine the patient, review data and lab result, discuss treatment plan with patient, nursing staff around 55 minutes
Anticipated Discharge: 24 - 48 hours
Subjective/Interval History
-
Date of Service: February 04, 2025
No chest pain
No sob
No abdominal pain
Wants to eat
Objective Data
-
Labs:
Laboratory Results
02/04/25 02/04/25
03:37 09:30
PT 13.2
INR 0.97
APTT 76.8 H Pending
Sodium 140
Potassium 4.3
Chloride 108 H
Carbon Dioxide 27
BUN 19
Creatinine 1.0
Glucose 139 H
Calcium 8.5
Vital Signs:
Vital Signs
Temp Pulse Resp BP Pulse Ox
98.2 F 85 24 127/101 94
02/04/25 08:00 02/04/25 08:00 02/04/25 08:00 02/04/25 08:00 02/04/25 08:00
I&O
02/03/25 02/04/25 02/05/25
06:59 06:59 06:59
Intake Total 1174.9 / 1281.6 320.1 / 320.1
Output Total 0 / 0
Balance 1174.9 / 1281.6 320.1 / 320.1
--- NOTE | 2025-02-04 09:55 | CON.CAR ---
Consultation
Consultation Request
Date/Time Consultation Requested: 02/03/25 at 20: 43
Date/Time Consultation Performed: 02/04/25 at 8 AM
Requesting Provider: Jm Du MD
Performing Provider: Jayro Donovan MD
Reason for Consultation: afib w RVR
Medical History
-
Chief Complaint: afib w RVR
History of Present Illness:
Michael Pena is an 80-year-old man with hypertension, diabetes, and BPH who presents with syncope found to have atrial fibrillation with RVR with heart rates in the 150s. Cardioversion x 3 was attempted in the ER due to hypotension but
unsuccessful. He was started on amiodarone IV infusion and converted to normal sinus rhythm overnight. 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 He smokes 2 cigarettes daily, drinks 1 glass of alcohol daily. He
has no history of sleep apnea.
Past Medical History
Past Medical History: Other (As above)
Social History
Tobacco: Smoker
Alcohol: Daily
Personal:
Living: With Family
Family History
Family History: Reviewed & Not Pertinent
Allergies / Home Medications
Allergy/AdvReac Type Severity Reaction Status Date / Time
NKA - No Known Allergies Allergy Uncoded 02/09/08 11:31
�Medication �Instructions �Recorded �Confirmed �Type
aspirin 81 mg tablet 81 mg PO BID Blood Clot 09/24/22 02/04/25 History
Prevention/Tx
doxazosin 8 mg tablet 8 mg PO DAILY BPH/HTN 09/24/22 02/04/25 History
finasteride 5 mg tablet 5 mg PO DAILY BPH 09/24/22 02/04/25 History
metformin 500 mg tablet 500 mg PO BID Diabetes 09/24/22 02/04/25 History
simvastatin 10 mg tablet 10 mg PO HS High Cholesterol 09/24/22 02/04/25 History
levomefolate Ca 3 mg-B6 35 1 cap PO BID 02/04/25 02/04/25 History
mg-meB12 2 mg-algal oil 90.314 mg
capsule (Foltanx RF)
lisinopril 20 1 tab PO DAILY 02/04/25 02/04/25 History
mg-hydrochlorothiazide 25 mg tablet
Review of Systems
-
All other systems: Negative unless noted
Physical Exam
Vital Signs
Temp Pulse Resp BP Pulse Ox
98.2 F 85 24 127/101 94
02/04/25 08:00 02/04/25 08:00 02/04/25 08:00 02/04/25 08:00 02/04/25 08:00
Lab Results
02/03/25 20:26
02/04/25 03:37
Troponin I 0.013 ng/ml 02/04/25 03:37
Physical Exam
General: Well Developed and Well Nourished
HEENT: Normocephalic and Anicteric
Respiratory: Clear and Non Labored Respirations
Cardiac: S1/S2 and Regular Rhythm; Negative Murmur or Peripheral Edema
Neuro: AO x 3
Impression / Plan
-
Michael Pena is an 80-year-old man with hypertension, diabetes, and BPH who presents with syncope found to have atrial fibrillation with RVR with heart rates in the 150s. Cardioversion x 3 attempted in the ER due to hypotension but
unsuccessful. He converted to normal sinus rhythm with IV amiodarone infusion.
New onset atrial fibrillation with RVR
-Now back in sinus rhythm. Okay to stop IV amiodarone.
-Start metoprolol 25 mg twice daily. Monitor BPs.
-[id number] 4. Start Eliquis 5 mg twice daily. Stop daily aspirin. Consult case management for pricing.
-Follow-up echocardiogram tomorrow
-Advised smoking and alcohol cessation
-Our office will make him a follow-up appointment upon discharge
Hypertension
-Continue home lisinopril�hydrochlorothiazide and doxazosin
-Monitor BP with the addition of metoprolol.
Data Reviewed
-
EKG: Tracing Personally Visualized and interpreted, Discussed with Physician, Discussed with Patient and Discussed with Family
Medical Tests (Nuc Med, Echo etc): Discussed with Patient and Discussed with Family
Labs: Labs Reviewed by me
--- NOTE | 2025-02-04 10:07 | CM ---
CM following re: discharge planning.
Reviewed pt's chart, met with pt and pt's spouse at bedside.
Pt is an 80 year old male, admitted with primary dx of Atrial Fibrillation with Rapid Ventricular Response. Cardiogenic Shock secondary to the above. PMH includes: hypertension, DM-II and BPH
Consult to check the bonilla for Eliquis 5mg BID and Xarelto 15 mg daily noted. Pt's prescription plan: [email or web address]. ID: [id number]. . CM called [facility] pharmacy and they are closed today, they open M-F from 9:00a.m till 11:00 p.m. CM will
check the bonilla during [facility] pharmacy working hours.
Pt reports he lives with spouse 2SH, 1 step to enter, has 2 supportive sons. 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 No DME, VN or SNF history.
PCP: Tom Kirkland
Pharmacy: [facility]. Prescription plan information explained above.
D/C plan: home with anticipated no needs. Spouse to transport at discharge.
[2025-02-04] MEDS: ELIQUIS 5 MG PO ×2 (10:27→19:42)
[2025-02-04] MEDS: LOPRESSOR 25 MG PO ×2 (10:27→19:42)
[2025-02-04 10:40] LABS: Troponin I < 0.012 ng/ml
[2025-02-04 11:52] LABS: Glucose - Point of Care 119 mg/dl (70-99)
--- NOTE | 2025-02-04 13:34 | PTCARENOTE ---
oob to recliner, gait steady, RW present but pt didn't need it. on BSC, moved bowels plus urine, urinal in reach. awaiting tele bed.
[2025-02-04] MEDS: SPIRIVA RESPIMAT 2.5 MCG 2 PUFF INH (13:40)
[2025-02-04 17:27] LABS: Glucose - Point of Care 77 mg/dl (70-99)
--- NOTE | 2025-02-04 17:41 | PTCARENOTE ---
remains OOB in recliner, eating dinner, small amounts voided in urinal, stood for skin care and underpad change.
--- NOTE | 2025-02-04 19:45 | PTCARENOTE ---
Addendum entered by Anne Alfaro RN 02/04/25 21:14:
Center of sternum with pad burn noted from probable cardioversion attempt in the ED. Patient denies pain at site, not open.
Original Note:
Patient received sitting up in recliner chair. He appears to be resting comfortably with eyes closed. He rouses easily to name called. He denies pain. He denies CP or SOB. Alert and oriented x 4. He sats 100% on RA. BP and HR stable. SR with
occasional pac's noted on CM. He denies N/V. Abdomen softly distended and nontender. BBS with UL clear anteriorly. Bilateral lungs with crackles posteriorly 1/[address]. S1S2 irregular. Positive pulses x 4 extremities, trace ankle edema. He has a
sense of urgency with urination. He voids yellow urine with sediment in small amounts via urinal. Chair in locked position. Call rivero within reach. Cell phone at bedside.
--- NOTE | 2025-02-04 20:40 | PTCARENOTE ---
Report called verbally to Mindi ORTEGA in IVU. Questions answered. Patient belongings gathered including books and bag. Patient transferred to IVU via wheelchair accompanied by RN. Belongings sent.
[2025-02-04] MEDS: PROSCAR 5 MG PO (20:42)
--- NOTE | 2025-02-04 21:30 | PTCARENOTE ---
Patient received as transfer from ICU as tele overflow. Arrived via wheelchair, stand and pivot to the bed x1 assist. Sinus rhythm on telemetry. Oxygen saturation 95-96% on room air. Patient oriented to room and unit. Offers no complaints at this
time. Call rivero within reach. Plan of care discussed. Care ongoing.
[2025-02-04 23:33] LABS: Glucose - Point of Care 87 mg/dl (70-99)
[2025-02-05 03:16] VITALS: BP 157/78
[2025-02-05 03:22] VITALS: BMI 32.1
[2025-02-05 03:51] LABS: Hematocrit 36.9 % (39.0-52.0); Hemoglobin 12.3 g/dL (13.0-18.0); Mean Corp Hgb Conc. 33.3 g/dL (33.0-37.0); Mean Corpuscular Hgb 30.8 pg (27.0-31.0); Mean Corpuscular Volume 92.5 fL (80.0-94.0); Mean Platelet Volume 10.5 fL (7.4-10.4); Platelet Count 246 10^3/uL (130-400); Red Blood Cell Count 3.99 10^6/uL (4.70-6.10); Red Cell Dist. Width 14.3 % (11.5-14.5); White Blood Cell Count 8.6 10^3/uL (4.8-10.8)
[2025-02-05 04:15] LABS: Blood Urea Nitrogen 17 mg/dl (9-20); Calcium 8.8 mg/dl (8.4-10.2); Carbon Dioxide 27 mmol/L (22-30); Chloride 104 mmol/L (98-107); Estimated Creatinine Clearance 76 ml/min; Glucose 94 mg/dl (70-99); Potassium 4.2 mmol/L (3.5-5.1); Sodium 140 mmol/L (135-145); eGFR > 60.00
--- NOTE | 2025-02-05 07:53 | W.PN.CD ---
Today's Communication / Plan
-
echo and Eliquis bonilla check then likely home this afternoon
Impression / Plan
-
Michael Pena is an 80-year-old man with hypertension, diabetes, and BPH who presents with syncope found to have atrial fibrillation with RVR with heart rates in the 150s. Cardioversion x 3 attempted in the ER due to hypotension but
unsuccessful. He converted to normal sinus rhythm with IV amiodarone infusion.
New onset atrial fibrillation with RVR
-Now back in sinus rhythm. Okay to stop IV amiodarone.
-consolidate metop to succinate 50 daily
-[id number] 4. Cont. Eliquis 5 mg twice daily. Stopped daily aspirin. Consult case management for pricing.
-Follow-up echocardiogram today
-Advised smoking and alcohol cessation
-Our office will make him a follow-up appointment upon discharge
Hypertension
-Continue home lisinopril�hydrochlorothiazide and doxazosin
Tele: NSR with frequent PACs
Subjective: feels well
Physical Exam
Vital Signs/Labs
Vital Signs
Temp Pulse Resp BP Pulse Ox
36.8 C 69 18 157/78 95
02/05/25 03:17 02/05/25 06:00 02/05/25 03:17 02/05/25 03:16 02/05/25 03:17
02/04/25 02/05/25 02/06/25
06:59 06:59 06:59
Actual Weight 98.7 kg 98.5 kg
02/05/25 03:20
02/05/25 03:20
PT 13.2 Sec (11.4-14.6) 02/04/25 03:37
INR 0.97 02/04/25 03:37
APTT Cancelled 02/04/25 09:30
Magnesium 2.2 mg/dl (1.6-2.3) 02/04/25 03:37
Triglycerides 71 mg/dl (10-149) 02/04/25 03:37
LDL Cholesterol, Calc 58 mg/dl 02/04/25 03:37
VLDL Cholesterol, Calc 14 mg/dl (0-30) 02/04/25 03:37
HDL Cholesterol 64 mg/dl 02/04/25 03:37
LAB Results
02/03/25 02/04/25 02/04/25
23:34 03:37 10:06
Troponin I < 0.012 0.013 < 0.012
Physical Exam
Constitutional: No acute distress
Cardiovascular: Rhythm & rate is regular
Respiratory: Respiratory effort normal
Neuro/Psych: AO x 3
Data Reviewed
-
Date of Service: February 05, 2025
[2025-02-05 08:30] VITALS: BP 151/88
[2025-02-05] MEDS: SPIRIVA RESPIMAT 2.5 MCG 2 PUFF INH (08:31)
[2025-02-05 08:48] VITALS: BP 151/88
--- NOTE | 2025-02-05 09:05 | W.PN.PUL3 ---
Addendum entered and electronically signed by Suki Carlin DO 02/05/25 16:44:
Patient is still pending d/c
We will sign off at this time, please call with questions
Original Note:
Today's Communication / Plan
-
Doing well, stable on RA
Further planning per jakob, Antonetteis set up
Discharge discussions for today
Reviewed OP pulm/sleep FU, which we will arrange
Agree with d/c planning
Assessment
-
80-year-old male active tobacco smoker with a past medical history of hypertension, hypercholesterolemia, and BPH who presented with vomiting at home and passed out. Patient was home with his and said that the food did not taste good. He then
went to the bathroom where he began to vomit and then passed out while sitting down on the toilet. He never hit his head and there was no seizure-like activity, tongue biting or urinary/stool incontinence. No one called and when EMS arrived he was
found to be in rapid A-fib with heart rate in the 150s. Patient reported that he was dizzy but had no chest pain at the time. In the ER he was found to be in rapid A-fib with heart rate in the 150s and also hypotensive despite being given fluids.
He was attempted to be cardioverted in the ER x 3 with continued rapid A-fib. Cardiology consulted who recommended IV amiodarone infusion and pressors if needed. Initial BP in the ER was 62/45 and he was saturating 94% on room air, and he was
afebrile to 98.3 �F. Initial labs showed leukocytosis of 12.6, absolute eosinophils 200, glucose 172, troponin negative at <0.012, + TSH 1.51. CXR showed mild pulmonary vascular congestion. He was started on amiodarone in the ER + heparin drip,
and given a total of 3 L IVF with NS 0.9%. He was admitted to the ICU for further care and Health Worker services consulted for additional management/recommendations.
Impression:
#Rapid A-fib with hypotension requiring amiodarone s/p failed DCCV x3 and now in NSR (A fib was new onset)
#Syncopal episode prior to admission
#Hypotension due to rapid A-fib - now normotensive
#Leukocytosis likely reactive
#Suspected COPD
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
Lumbar DDD
Hypercholesterolemia
History of cervical fracture at C1
Tobacco use disorder with [id number]-[id number] history, currently smokes 2 cigarettes/day 4 days a week
Daily alcohol use (reports only 1 beer daily)
BPH
History of hypertension
Plan:
Patient is now in NSR and troponin has been negative
Amiodarone drip has now stopped and he is being started on metoprolol per cardiology
Heparin drip also being stopped and he is being started on Eliquis as CHADS2-Vasc score is 4
He will need outpatient cardiology follow-up
Case management consult for pricing for Eliquis
Continue with telemetry to monitor for arrhythmias
Replete electrolytes with K>4, Mg>2
Maintain SpO2 >90-94% -currently on room air breathing comfortably and saturating 95%
He is currently wheezing on exam and I suspect that he has COPD
He says he is not short of breath at home but per the , he is usually huffing and puffing especially when he exerts himself
He is not currently on an inhaler, but I do believe he would benefit from starting a long-acting muscarinic antagonist; I will start him on Spiriva which he should be discharged on
Will arrange for outpatient pulmonary office follow-up for full PFTs and continued management of his suspected COPD
prn nebulized bronchodilators - not currently bronchospastic
Incentive spirometer encouraged 10x per hour for at least 4 hrs a day
Risk factors are noted for OSAS as well - age/BMI/gender/cardiac history
Would recommend sleep study as OP as well
No evidence for pneumonia on his CXR
Trend WBC and monitor for fevers
If he spikes a fever then consider stewart-culture with initiation of empiric antibiotics
He reports that he drinks only 1 beer daily
Monitor for signs of alcohol withdrawal as he could be underestimating his total usage
Continue daily thiamine
- Maintain euglycemia with goal BG 140-180; HbA1C: 5.8 from 02/04/2025
- Trend H/H and transfuse if needed to keep Hb>7g/dL; keep plt>20k, unless there is concern for bleeding then keep plt>50k
- I offered a nicotine patch but he declined at this time
- PT/OT
- DVT ppx - Eliquis
Patient has markedly improved, remains normotensive and now in normal sinus rhythm.
Discharge planning
Outpatient pulmonary office follow-up will be arranged.
Data:
CXR 02/03/2025: Mild pulmonary vascular congestion.
LDCT 07/20/19- Bibasilar bronchiectasis and bronchial wall thickening. This could be secondary to recurrent aspiration or bronchitis. No lung nodules.
-----
Total time spent today was 47 minutes for this encounter. Time includes reviewing laboratory test/imaging results, reviewing pertinent medical records, obtaining and reviewing medical history, performing an appropriate exam, ordering medications,
tests and procedures. Time also includes documentation of this encounter, coordinating patient care and communicating with other healthcare professionals. Total time does not include separately billed tests performed on this date of service.
Subjective Data
-
Date of Service:
Date of Service: February 05, 2025
Chief Complaint: Pulmonary Follow Up
Subjective:
No new complaints, remains stable on RA
Ready to go home
Objective Data
Data Reviewed
Vital Signs / I&O / Oxygen:
Vital Signs
Temp Pulse Resp BP Pulse Ox
98.3 F 69 18 157/78 95
02/05/25 03:17 02/05/25 06:00 02/05/25 03:17 02/05/25 03:16 02/05/25 03:17
Intake and Output
02/04/25 02/05/25 02/06/25
06:59 06:59 06:59
Intake Total 1174.9 / 1281.6 1410.1 / 1410.1
Output Total 0 / 0 905 / 905 300 / 300
Balance 1174.9 / 1281.6 505.1 / 505.1 -300 / -300
SaO2 95
Physical Exam
General: Comfortable and Other (NAD)
HEENT: Normocephalic, Anicteric and Moist Mucous Membranes
Cardiovascular: S1-S2 and Regular Rhythm
Respiratory: Clear and Non-Labored Respirations
GI: Soft, Non Distended and Non Tender
Neurology: Awake, Alert, Oriented and No Motor Deficits
Skin: Warm, Dry and Good Color
Labs/Micro/Reports
Lab Data
02/05/25 03:20
02/05/25 03:20
Laboratory Results
02/04/25
09:30
APTT Cancelled
[2025-02-05] MEDS: ELIQUIS 5 MG PO ×2 (09:12→17:50)
[2025-02-05] MEDS: CARDURA 8 MG PO (09:13)
[2025-02-05] MEDS: LOPRESSOR 25 MG PO ×2 (09:13→17:50)
[2025-02-05] MEDS: PROSCAR 5 MG PO (09:13)
--- NOTE | 2025-02-05 11:01 | CM ---
Addendum entered by Latonya Beavers 02/05/25 11:12:
Reviewed co-pay information with him. He is agreeable to the co-pay.
Original Note:
Reviewed chart. Mr. Pena was transferred to IVU. Met with Mr. Pena to review discharge plans. He states prior to admission he resides with his spouse in a two story home with one step to enter. He states he has a first floor
set-up. He states he sleeps in a recliner on the first floor. He states prior to admission he was independent with ambulation and adls. He states he does not have any DME in the home. He states he has a prescription plan and uses [facility] pharmacy and
[facility] mail order pharmacy. Telephone call to [facility] to check on co-pay for Eliquis 5 mg po bid. His co-pay for a one month supply would be $47.00 and a three month supply with mail order would be $125.[address] the one month free coupon in
his red discharge folder. Medical work-up in progress. The discharge plan is to return home with his spouse when medically stable.
[2025-02-05 11:52] VITALS: BP 121/82
[2025-02-05 12:16] LABS: Glucose - Point of Care 120 mg/dl (70-99)
--- NOTE | 2025-02-05 14:23 | PTCARENOTE ---
received patient this am, monitor shows NSR, VSS. patient has no complaints. Echo being done at bedside.
[2025-02-05 16:33] VITALS: BP 150/82
--- NOTE | 2025-02-05 16:50 | W.PN.HOSP.TC ---
Today's Communication/Plan
-
Assessment / Plan
Assessment / Plan
Physical Exam
General: No acute distress, comfortable
HEENT: Moist mucous membranes and PERRLA
Respiratory: Clear; No Wheezes, Rales or Rhonchi
Cardiac: S1/S2, regular Rhythm, heart rate 70
GI: Soft, Non Tender, Non Distended, Normal Bowel Sounds and Other (Diastasis recti. No rebound / guarding.)
Musculoskeletal: No Clubbing, No Cyanosis and No Edema
Neuro: AO x 3
Patient is an 80y M with PMH significant for HTN, DM-II and BPH who presents to ED following syncopal event at home.
# new onset Atrial Fibrillation with Rapid Ventricular Response
Cardiogenic Shock secondary to cardiac arrhythmia
-Currently, patient back in sinus rhythm. He is off vasopressor.
- Discontinued amiodarone
- Continuing rate control with metoprolol tartrate 25 mg p.o. twice daily, can consolidate to metoprolol succinate 50 mg daily at discharge
- Anticoagulation with Eliquis
- Echocardiogram pending
-Appreciate cardiology recommendations
# N/V
-Suspect secondary to poor cerebral perfusion in the setting of rapid A-fib
- Now resolved
- Tolerating p.o. diet
#Benign Hypertension
-Resume home lisinopril, hold HCTZ for now considering started on metoprolol
#DM-II
- Stable. Hold metformin acutely.
- Follow glucose and cover with SSI as needed.
- Hemoglobin A1c 5.8
# BPH
- Monitor for retention
- Continue home doxazosin
#Suspected COPD:
- Outpatient pulmonology follow-up for sleep study
# Leukocytosis:
- Likely reactive, now resolved
-Remains afebrile
# Hypomagnesemia
s/p magnesium sulfate
DVT Prophylaxis: On Eliquis
Code Status: Full
Total time spent to see the patient, examine the patient, review data and lab result, discuss treatment plan with patient, nursing staff around 55 minutes
Anticipated Discharge: Within 24 hours
Subjective/Interval History
-
Date of Service: February 05, 2025
Patient was seen and examined at bedside this morning. Comfortable. Awaiting echo prior to hopeful discharge to home.
Objective Data
-
Vital Signs:
Vital Signs
Temp Pulse Resp BP Pulse Ox
98.2 F 69 16 150/82 96
02/05/25 16:33 02/05/25 16:33 02/05/25 16:33 02/05/25 16:33 02/05/25 16:33
I&O
02/04/25 02/05/25 02/06/25
06:59 06:59 06:59
Intake Total 1174.9 / 1281.6 1410.1 / 1410.1
Output Total 0 / 0 905 / 905 500 / 500
Balance 1174.9 / 1281.6 505.1 / 505.1 -500 / -500
Review of Systems
-
History Source: Patient
All other systems: Reviewed and negative
Physical Exam
-
General: No Apparent Distress
[2025-02-05 17:20] LABS: Glucose - Point of Care 96 mg/dl (70-99)
--- NOTE | 2025-02-05 17:24 | W.DCSUMMARY ---
Discharge Summary
Discharge Data
Date of Admission: 02/03/25
Date of Discharge: 02/05/25
-
Pending Results: No
Hospital Course
Mr. Pena is a 80-year-old male with medical history of jjn-cpzhowc-wtbamyiyk diabetes mellitus, hypertension, and prostate enlargement who presented following a syncopal episode at home. He was found to have atrial fibrillation with rapid
ventricular response. He does not have a history of A-fib. He was found to be in cardiogenic shock due to this cardiac arrhythmia. He was initially on vasopressors but was able to be weaned off. His heart rate returned to normal sinus rhythm
after being started on IV amiodarone drip. Amiodarone was able to be discontinued and his heart rate was controlled with metoprolol tartrate. He will be transitioned to metoprolol succinate 50 mg daily at discharge. He is being anticoagulated
with Eliquis for stroke prevention in the setting of A-fib. He will continue this regimen after discharge. His home lisinopril-HCTZ has been changed to low-dose lisinopril now that he has been started on metoprolol. Echocardiogram showed
preserved ejection fraction with mild aortic regurgitation, mild tricuspid regurgitation, and mildly dilated aortic root measuring 4.1 cm. He will need close follow-up with cardiology in the outpatient setting for ongoing management and medication
adjustments as needed. He was evaluated by pulmonology while inpatient and has been recommended to follow-up in the outpatient setting for possible obstructive sleep apnea and COPD. At time of hospital discharge he was medically stable. He will
also need to follow-up with his primary care physician after hospital discharge.
General: No acute distress, comfortable
HEENT: Moist mucous membranes and PERRLA
Respiratory: Clear; No Wheezes, Rales or Rhonchi
Cardiac: S1/S2, regular Rhythm, heart rate 70
GI: Soft, Non Tender, Non Distended
Musculoskeletal: No Clubbing, No Cyanosis and No Edema
Neuro: AO x 3
Discharge Plan
-
Patient Disposition: Home (Routine Discharge)
Discharge Diagnosis/Procedures: New onset A-fib
Diet: Diabetic, Carb Controlled
Activity: As tolerated
Activity Restrictions/Additional Instructions:
Mr. Pena is a 80-year-old male with medical history of vww-dugkvfy-[id number] diabetes mellitus, hypertension, and prostate enlargement who presented following a syncopal episode at home. He was found to have atrial fibrillation with rapid
ventricular response. He does not have a history of A-fib. He was found to be in cardiogenic shock due to this cardiac arrhythmia. He was initially on vasopressors but was able to be weaned off. His heart rate returned to normal sinus rhythm
after being started on IV amiodarone drip. Amiodarone was able to be discontinued and his heart rate was controlled with metoprolol tartrate. He will be transitioned to metoprolol succinate 50 mg daily at discharge. He is being anticoagulated
with Eliquis for stroke prevention in the setting of A-fib. He will continue this regimen after discharge. His home lisinopril-HCTZ has been changed to low-dose lisinopril now that he has been started on metoprolol. Echocardiogram showed
preserved ejection fraction with mild aortic regurgitation, mild tricuspid regurgitation, and mildly dilated aortic root measuring 4.1 cm. He will need close follow-up with cardiology in the outpatient setting for ongoing management and medication
adjustments as needed. He was evaluated by pulmonology while inpatient and has been recommended to follow-up in the outpatient setting for possible obstructive sleep apnea and COPD. At time of hospital discharge he was medically stable. He will
also need to follow-up with his primary care physician after hospital discharge.
Referrals:
Jayro Donovan MD [Active] -
Tom Kirkland MD [Family Provider] -
Duran Mcghee MD [Active] - in two to four weeks (full PFTs on day of office visit)
Prescriptions:
New
lisinopril 5 mg Tablet
5 mg PO DAILY 30 Days Qty: 30 0RF
Eliquis 5 mg Tablet
5 mg PO BID 30 Days Qty: 60 0RF
metoprolol succinate [Toprol XL] 50 mg tablet extended release 24 hr
50 mg PO DAILY 30 Days Qty: 30 0RF
Continued
metformin 500 mg Tablet
500 mg PO BID
simvastatin 10 mg Tablet
10 mg PO HS
doxazosin 8 mg Tablet
8 mg PO DAILY
aspirin 81 mg Tablet
81 mg PO BID
finasteride 5 mg Tablet
5 mg PO DAILY
[id number]-algal oil [Foltanx RF] 3 mg-35 mg-2 mg -90.314 mg Capsule
1 cap PO BID
Discontinued
lisinopril-hydrochlorothiazide 20-25 mg Tablet
1 tab PO DAILY
Discharge Orders:
Discharge Patient (As Directed); Ordered 02/05/25
Ordered By: Mihai Avelar
Care Plan Goals
Care Plan Goals:
Problem: Readiness for enhanced knowledge related to diagnosis and treatment plan
Goal: Understand your diagnosis and treatment plan needs, including medications if applicable.
Instructions: Know your diagnosis, underlying causes and treatment plan options, including medications if applicable. Consult with your health care team to learn about your diagnosis and treatment plan, including medications if applicable.
Discharge Date and Time
Print Language: KOSOVAN
--- NOTE | 2025-02-05 18:22 | PTCARENOTE ---
D/C instructions were given to patient, patient verbalizes understanding. his 1999 medications were given as per hospitalist. person belongings packed. INT x 2 removed, 1 INT remains with monitor. patient will be discharged at 1999, when his son can
come pick him up.
[2025-02-05 18:51] VITALS: BP 120/74
--- NOTE | 2025-02-05 21:16 | PTCARENOTE ---
Pt was discharged @ 1999. Pt was escorted by wheelchair with PCT to lobby where son was there to take him home. Discharge instructions given and copy sent home with pt. All ivs and telemetry pack removed prior to discharge see flowsheet for vital
signs.
== END 2025-02-05 20:00 | disposition home or self-care (01) | DRG 308 ==
LOC: IVU 21:54
PROVIDERS: Internal Medicine; Nurse Practitioner Primary Care; Physician Assistant; ADMITTING PHYSICIAN Hospitalist; ATTENDING PHYSICIAN Internal Medicine; CONSULT PHYSICIAN Internal Medicine Critical Care Medicine; CONSULT PHYSICIAN Student in an Organized Health Care Education/Training Program; EMERGENCY PHYSICIAN Emergency Medicine; FAMILY PHYSICIAN Family Medicine
DX: I48.91 Unspecified atrial fibrillation (principal); R57.0 Cardiogenic shock; F17.210 Nicotine dependence, cigarettes, uncomplicated; I10 Essential (primary) hypertension; E11.9 Type 2 diabetes mellitus without complications; N40.0 Benign prostatic hyperplasia without lower urinary tract symptoms; E83.42 Hypomagnesemia; I08.0 Rheumatic disorders of both mitral and aortic valves; I77.810 Thoracic aortic ectasia; I95.89 Other hypotension; Z79.01 Long term (current) use of anticoagulants; Z79.82 Long term (current) use of aspirin; Z79.899 Other long term (current) drug therapy; Z82.49 Family history of ischemic heart disease and other diseases of the circulatory system
CPT/HCPCS: 71045; 80048; 80053; 80061; 82962; 83036; 83735; 84443; 84484; 85025; 85027; 85610; 85730; 92960; 93005; 93306; 94640; 96361; 96365; 96375; 99152; 99291; 99406; Q9950

== ENCOUNTER → 2025-10-16 14:08 | Outpatient (REF) | payer MEDICARE, OTHER, SELFPAY | LOC: HWRAD 14:08 | PROVIDERS: ATTENDING PHYSICIAN Family Medicine | DX: R31.0 Gross hematuria (principal) | CPT/HCPCS: 76770 ==